=== PATIENT | female | born 1995 | race Caucasian/White ===

== ENCOUNTER 2020-09-03 11:54 | Emergency (ER) | payer BC ==
[2020-09-03 13:31] LABS: HEMOGLOBIN 14.2 gm/dl (12.3-15.3); RED BLOOD COUNT 4.21 M/UL (4.00-5.10); WHITE BLOOD COUNT 8.1 K/UL (4.5-11.0)
[2020-09-03 13:48] LABS: BUN/CREATININE RATIO 12 (0-10)
== END 2020-09-03 15:33 | disposition home or self-care (01) ==
LOC: ER1 11:54
PROVIDERS: Physician Assistant
DX: O20.0 Threatened abortion (principal); Z87.42 Personal history of other diseases of the female genital tract; Z3A.01 Less than 8 weeks gestation of pregnancy
CPT/HCPCS: 76817; 80053; 81001; 84702; 85025; 99284